=== PATIENT | female | born 1960 | race Caucasian/White ===

== ENCOUNTER → 2023-10-20 | Outpatient (CLI) | payer MEDICARE ==
[~2023-10-20] MED LIST: [UNRECOGNIZED DRUG - REMARK]
== END ==
LOC: LAB 07:59 → LAB SHORT 07:59
DX: N84.2 Polyp of vagina (principal)
CPT/HCPCS: 88305

== ENCOUNTER → 2023-11-09 | Outpatient (CLI) | payer MEDICARE ==
[2023-11-12 14:50] LABS: HPV GENOTYPE 16 Not Detected; HPV GENOTYPE 18 Not Detected; HPV HIGH RISK Not Detected; HPV SOURCE Cervical
== END ==
LOC: LAB 13:54 → LAB SHORT 13:54
PROVIDERS: Obstetrics & Gynecology
DX: Z01.419 Encounter for gynecological examination (general) (routine) without abnormal findings (principal)
CPT/HCPCS: 87624; G0123

== ENCOUNTER 2025-08-23 07:12 | Day surgery (SDC) | payer MEDICARE ==
[2025-08-23] VITALS (16 sets, daily range): BP systolic 80–131; BP diastolic 57–94
[~2025-08-23] VITALS: Ht 167.6 cm; Wt 67.1 kg
--- NOTE | 2025-08-23 07:54 | NUR ---
Patient states colon prep results clear. Patient States Post-Procedure ride home has been arranged. Patient confirms NPO status and agrees with scheduled surgery.
--- NOTE | 2025-08-23 08:04 | NUR ---
08/23/25 0804 Ingrid Alexander CONFIRMED AND REVIEWED H&P, MEDCICATIONS, ALLERGIES, MEDICAL HISTORY, RESPIRATORY HISTORY, VITAL SIGNS, 3-LEAD EKG, CONSENTS, AND PHYSICIAN ORDERS. PATIENT CONFIRMS NPO STATUS AND AGREES WITH SCHEDULED PROCEDURE. MONITOR INTACT WITH CONTINUOUS PULSE OXIMETRY, CAPNOGRAPHY, 3-LEAD EKG, INTERMITTENT BP. SUPPLEMENTAL O2 TO BE TITRATED THROUGHOUT PROCEDURE TO MAINTAIN O2 SATURATION ABOVE 90%. PATIENT DETERMINED TO BE ASA APPROPRIATE FOR PROPOFOL SEDATION PRIOR TO START OF PROCEDURE BY DR. RAYMOND
== END 2025-08-23 23:00 | disposition home or self-care (01) ==
LOC: ORSCMMR 07:12 → ORD 08:15 → ORSCMMR 23:00
PROVIDERS: Internal Medicine Gastroenterology
PROC: 0DJD8ZZ Inspection of Lower Intestinal Tract, Via Natural or Artificial Opening Endoscopic (ICD-10-PCS; principal; 2025-08-23 08:15)
DX: Z12.11 Encounter for screening for malignant neoplasm of colon (principal)
CPT/HCPCS: J2704; J7120